=== PATIENT | female | born 1985 | race Caucasian/White ===

== ENCOUNTER 2016-03-03 19:47 | Emergency (ER) | payer BC ==
[~2016-03-03] VITALS: Ht 170.2 cm; Wt 74.8 kg
[~2016-03-03 19:47] MED LIST: DOXY100C2 PO; HYDR-3816 PO; HYDR1TAB66 PO; KETO-22 PO; LORA1TAB; METR500T PO; NAPR-243 PO; ONDA8TAB9 PO; PRM25T PO; TMZP15C PO
--- OUTSIDE RECORDS SUMMARY | 2016-03-03 19:52 | XMS REPORT ---
Author Jude Schwartz [facility] Address [address] [place], [place] [id number] Care Team Providers [facility] Coordinator Name Role Phone Jude Walls PCP Unavailable Allergies and Adverse Reactions Name Reaction Notes Zithromax Plan of Treatment Planned Activity Comments Planned Date Planned Time Plan/Goal HEPATOBILIARY SYSTEM IMAGING 11/28/2015 12:00 AM Medications Active Name Start Date Estimated Completion Date SIG Comments estradiol 0.5 mg oral tablet take 1 tablet (0.5 mg) by oral route once daily Name Start Date Expiration Date SIG Comments promethazine oral Zofran (as hydrochloride) oral trazodone oral lorazepam oral omeprazole 40 mg oral capsule,delayed release(DR/EC) 11/15/2015 12/15/2015 take 1 capsule by oral route 2 times a day for 30 days Carafate 1 gram oral tablet 11/15/2015 12/15/2015 take 1 tablet (1 gram) by oral route 4 times per day on an empty stomach 1 hour before meals and at bedtime for 30 days [place] 5-325 mg oral tablet 12/05/2015 may take 1 to 2 tablets every 6hr prn pain Discontinued Name Start Date Discontinued Date SIG Comments hydrocodone-acetaminophen oral 12/05/2015 Problem List Description Status Onset Anemia Active Vertigo Active Biliary dyskinesia Active 12/10/2015 Preop examination Active 12/10/2015 Vital Signs Date Time BP-Sys(mm[Hg] BP-Oriana(mm[Hg]) HR(bpm) RR(rpm) Temp WT HT HC BMI BSA BMI Percentile O2 Sat(%) 12/10/2015 3:32:00 PM 122 mmHg 81 mmHg 67 bpm 20 rpm 97.4 F 171 lbs 67 in 26.78 kg/m2 1.91 m2 11/28/2015 9:16:00 AM 108 mmHg 60 mmHg 82 bpm 18 rpm 97.9 F 170 lbs 67 in 26.6255 kg/m 1.9092 m 99 % 11/20/2015 10:20:00 AM 122 mmHg 86 mmHg 68 bpm 16 rpm 97.8 F 168.375 lbs 67 in 26.37 kg/m2 1.90 m2 99 % 11/15/2015 6:01:00 PM 112 mmHg 70 mmHg 66 bpm 16 rpm 98.6 F 169 lbs 67 in 26.4689 kg/m 1.9036 m 99 % 08/21/2014 11:42:00 AM 163 lbs 67 in 25.53 kg/m2 1.87 m2 Social History Name Description Comments [place] Tobacco Former smoker Alcohol Use - Occasional History of Procedures Date Ordered Description Order Status 11/20/2015 12:00 AM US EXAM ABDOM COMPLETE Returned 12/10/2015 12:00 AM COMPLETE CBC W/AUTO DIFF WBC Reviewed 12/10/2015 12:00 AM COMPREHEN METABOLIC PANEL Reviewed 08/21/2014 12:00 AM URNLS DIP STICK/TABLET REAGENT AUTO MICROSCOPY Reviewed 08/21/2014 12:[address] ABDOMEN W/O & W/DYE Reviewed Results Summary Data and Description Results 08/21/2014 2:00 PM COLOR YELLOW APPEARANCE HAZY SPEC GRAV 1.025 pH 6.0 PROTEIN NEGATIVE GLUCOSE NEGATIVE KETONE TRACE BILIRUBIN NEGATIVE BLOOD MODERATE NITRITE NEGATIVE LEUK SCREEN NEGATIVE CASTS/LPF NEGATIVE CRYSTALS NEGATIVE MUCOUS THRDS FEW BACTERIA FEW EPITH CELLS 1+ SQUAMOUS TRICHOMONAS NEGATIVE YEAST NEGATIVE 12/10/2015 3:45 PM WBC 4.6 RBC 4.71 HGB 14.10 g/dLHCT 42.70 %MCV 91.0 fLMCH 29.90 pgMCHC 33.0 g/dLRDW CV 11.80 %MPV 10.30 fLPLT 162 %NEUT 49.10 %%LYMP 38.0 %%MONO 8.20 %%EOS 3.90 %%BASO 0.60 %#NEUT 2.27 #LYMP 1.76 #MONO 0.38 #EOS 0.18 # BASO 0.03 GLUCOSE 95.0 mg/dLSODIUM 140.0 mmol/LPOTASSIUM 4.60 mmol/LCHLORIDE 106.0 mmol/LCO2 28.0 mmol/LBUN 11.0 mg/dLCREATININE 1.20 mg/dLSGOT/AST 21.0 IU/ LSGPT/ALT 22.0 IU/LALK PHOS 69.0 IU/LTOTAL PROTEIN 6.80 g/dLALBUMIN 4.10 g/ dLTOTAL BILI 0.60 mg/dLCALCIUM 9.10 mg/dLeGFR 52 History Of Immunizations Not available. History of Past Illness Name Date of Onset Comments Anemia Vertigo [place] Spotted Fever Biliary dyskinesia 12/10/2015 Preop examination 12/10/2015 Hematuria Aug 21 2014 12:04PM UTI (lower urinary tract infection) Aug 21 2014 12:04PM Right flank pain Aug 21 2014 12:04PM Abdominal Pain, RUQ Nov 15 2015 6:03PM GERD (gastroesophageal reflux disease) Nov 15 2015 6:03PM Right upper quadrant abdominal pain Nov 20 2015 10:25AM Intertrigo Nov 20 2015 10:25AM RUQ abdominal pain Nov 20 2015 12:17PM Positive Anderson's Sign Nov 28 2015 8:59AM Abdominal pain Nov 28 2015 8:59AM Abdominal Pain Nov 28 2015 9:20AM Preop examination Dec 10 2015 2:58PM Biliary dyskinesia Dec 10 2015 2:58PM Cholelithiasis Dec 10 2015 2:58PM Chronic Cholecystitis Dec 10 2015 2:58PM Payers Insurance Name Company Name Plan Name Plan Number Policy Number Policy Group Number Start Date [employer] [place] [id number] N/A [employer] [facility] [id number] N/A History of Encounters Visit Date Visit Type Provider 12/10/2015 Office visit Jude Walls DO 11/28/2015 Office visit José Carlson MD 11/20/2015 Office visit José Carlson MD 11/15/2015 Office visit Roberta Martínez APRN 09/03/2014 [facility] Lupe Vallejo MD 08/21/2014 Office visit Lupe Vallejo MD
--- NOTE | 2016-03-03 20:37 | ED Lower Extremity ---
General Chief Complaint: Lower Extremity Stated Complaint: L KNEE INJ Nursing Triage Note: LEFT KNEE PAIN AFTER DOING REVERSE LUNGES ON A STOOL AND FELT LEFT KNEE CAP POP OUT OF PLACE AND THEN WAS REDUCED BY PT. Nursing Sepsis Screen: No Definite Risk Source: patient Exam Limitations: no limitations History of Present Illness Time seen by provider: 20:37 Initial Comments 30-year-old female patient presents to the emergency department complaints of left knee pain. Patient states she is doing reverse lunges on the stool itself left knee Dislocates. Patient states she then reduced the knee At home. Location Injury Occurred: home Onset: just prior to arrival Pain/Injury Location: left knee Method of Injury: twisted Modifying Factors: Improves With Immobilization, Worse With Movement Allergies and Home Medications Allergies Coded Allergies: azithromycin (Verified Allergy, 06/22/11) tramadol HCl (Unverified Adverse Reaction, Intermediate, 10/12/12) Home Medications Hydrocodone Bit/Acetaminophen 1 Tab Tablet #12 1 TAB PO Q6H PRN PRN PAIN Prescribed by: ANTHONY WAGGONER on 08/14/14 1610 Hydrocodone/Acetaminophen 1 Each Tablet #14 1 EACH PO Q4H PRN PRN PAIN Prescribed by: MILAN TORRE on 03/03/16 2105 Lorazepam 1 Mg Tab #60 (Reported) Promethazine Hcl 25 Mg Tablet 1 TAB PO QID (Reported) Temazepam 15 Mg Cap 15 MG PO HS (Reported) Constitutional: no symptoms reported Respiratory: no symptoms reported Cardiovascular: no symptoms reported Musculoskeletal: see HPINo back pain, joint pain (left knee) joint swelling ( left knee) Skin: No change in color Psychiatric/Neurological: Denies Numbness, Denies Paresthesia, Denies Tingling , Denies Weakness All Other Systems Reviewed Negative Unless Noted: Yes (Negative excepted noted.) Past [id number]-[id number] Hx Patient Social History Alcohol Use: Rarely Uses Recreational Drug Use: No Smoking Status: Never a Smoker Recent Foreign Travel: No Contact w/Someone Who Travel: No Recent Infectious Disease Expo: No Recent Hopitalizations: No Physical Abuse Screen: No Sexual Abuse: No Seasonal Allergies Seasonal Allergies: No Surgeries HX Surgeries: Yes (L KNEE TORN LIGAMENT) Surgeries: Gallbladder, Hysterectomy, Oophorectomy Respiratory Hx Respiratory Disorders: No Cardiovascular Hx Cardiac Disorders: No Neurological Hx Neurological Disorders: No Reproductive System Hx Reproductive Disorders: No Female Reproductive Disorders: Ovarian Cyst [employer] History: Hysterectomy Genitourinary Hx Genitourinary Disorders: No Gastrointestinal Hx Gastrointestinal Disorders: No Musculoskeletal Hx Musculoskeletal Disorders: No Endocrine Hx Endocrine Disorders: No HEENT HX ENT Disorders: No Cancer Hx Cancer: No Psychosocial Hx Psychiatric Problems: No Integumentary HX Skin/Integumentary Disorder: No Blood Transfusions Hx Blood Disorders: No Reviewed Nursing Assessment Reviewed/Agree w Nursing PMH: Yes Family Medical History Significant Family History: No Pertinent Family Hx Physical Exam Vital Signs Vital Sign - Last 12Hours 03/03/16 20:03 Temp 99.1 Pulse 96 Resp 20 B/P 129/70 Pulse Ox 96 O2 Delivery Room Air Capillary Refill : Less Than 3 Seconds General Appearance: WD/WN no apparent distress Cardiovascular: normal peripheral pulses Hips: bilateral hip non-tender, bilateral hip normal inspection, bilateral hip normal range of motion, bilateral hip no evidence of injury Legs: bilateral leg non-tender, bilateral leg normal inspection, bilateral leg normal range of motion, bilateral leg no evidence of injury Knees: right knee non-tender, right knee normal inspection, right knee normal range of motion, right knee no evidence of injury, left knee bone tenderness ( patellar and tibial tuberosity tenderness.), left knee joint effusion, left knee pain, left knee soft tissue tenderness (generalized), left knee swelling Ankles: bilateral ankle non-tender, bilateral ankle normal inspection, bilateral ankle normal range of motion, bilateral ankle no evidence of injury Feet: bilateral foot non-tender, bilateral foot normal inspection, bilateral foot normal range of motion, bilateral foot no evidence of injury Neurologic/Tendon: normal sensation normal motor functions normal tendon functions responds to pain no evidence tendon injury Neurologic/Psychiatric: no motor/sensory deficits alert normal mood/affect oriented x 3 Skin: normal color warm/dry Progress/Results/Core Measures Results/Orders My Orders Orders-MILAN TORRE Knee, Left, 3 Views (03/03/16 20:36) Morphine Injection (Morphine Injection (03/03/16 20:40) Knee Immobilizer (03/03/16 21:05) Crutches (03/03/16 21:05) Vital Signs/I&O Vital Sign - Last 12Hours 03/03/16 03/03/16 20:03 21:19 Temp 99.1 98.2 Pulse 96 66 Resp 20 20 B/P 129/70 Pulse Ox 96 95 O2 Delivery Room Air Room Air Blood Pressure Mean: 89 Diagnostic Imaging Diagonstic Imaging: Xray Plain Films/CT/US/NM/MRI: knee (left ) Comments FINDINGS: 3 views of the left knee are obtained. No acute fracture, malalignment or osseous destructive process is seen. Joint spaces are preserved. Articular surfaces appear smooth. The soft tissues appear unremarkable. IMPRESSION: Negative left knee Dictated on workstation # [id number] Reviewed: Reviewed by Me (radiology report reviewed by me) Departure Communication Progress Notes Diagnostic findings discussed with the patient. Patient reports improved pain with medications. Patient placed in a knee immobilizer. Discharge to home. Impression Impression: Primary Impression: Patellar displacement Qualified Code: S83.005A - Unspecified dislocation of left patella, initial encounter Disposition: HOME, SELF-CARE Condition: Improved Departure-Patient Inst. Decision time for Depature: 21:05 Referrals: NO,LOCAL PHYSICIAN (PCP/Family) Primary Care Physician Patient Instructions: Knee Sprain (DC) Add. Discharge Instructions: All discharge instructions reviewed with patient and/or family. Voiced understanding. Medications as instructed. Ibuprofen 800 mg by mouth every 8 hours as needed for pain. Elevate the left knee on pillows. Ice pack for 20 minute intervals as needed for pain. Knee immobilizer and crutches as instructed. Follow-up with her family practitioner for recheck as an outpatient. Call for appointment time. Return to the emergency department for worsened symptoms or any other concerns. Scripts Hydrocodone/Acetaminophen (Hydrocodon -Acetaminophen 5-325)1 Each Tablet1 Each PO Q4H PRN PAIN #14 TAB Ref 0 Prov:MILAN TORRE 03/03/16 Work/School Note: [employer]ing MILAN TORRE Mar 03, 2016 20:37
[2016-03-03] MEDS ORDERED: morphine INJ 10 MG/ML 1ML (SYR OR VIAL) IM STA (20:40)
--- NOTE | 2016-03-03 21:01 | Diagnostic Imaging Report ---
INDICATION: Injury. Pain. COMPARISON: None FINDINGS: 3 views of the left knee are obtained. No acute fracture, malalignment or osseous destructive process is seen. Joint spaces are preserved. Articular surfaces appear smooth. The soft tissues appear unremarkable. IMPRESSION: Negative left knee Dictated by: Dictated on workstation # [id number]
[2016-03-03] MEDS ORDERED: HYDR-3812 PO (21:05)
[2016-03-03 21:19] VITALS: BP 109/76
== END 2016-03-03 21:19 | disposition home or self-care (01) ==
LOC: EDUNIT# 19:47 → ER 19:48
DX: S83.105A Unspecified dislocation of left knee, initial encounter (principal); X50.3XXA Overexertion from repetitive movements, initial encounter; Y93.B9 Activity, other involving muscle strengthening exercises; Y99.8 Other external cause status
CPT/HCPCS: 73562; 96372